=== PATIENT | female | born 1990 | race Hispanic/Latino ===

== ENCOUNTER 2025-01-02 14:44 | Emergency (ER) | payer MEDICARE ==
[~2025-01-02] VITALS: Ht 154.9 cm; Wt 101.2 kg
[~2025-01-02 14:44] MED LIST: ALBUTEROL2.5 MG/3 M INH; IBUPROFEN600 MG PO; VENTOLIN HFA18 GM INH; ZITHROMAX250 MG PO
[2025-01-02 15:00] VITALS: PULSE 110; RESP 20; TEMP 98.2; O2SAT 97
[2025-01-02] MEDS: SODIUM CHLORIDE 0.9% 1000ML 1,000 ML IV ONE (15:47)
== END 2025-01-02 18:34 | disposition home or self-care (01) ==
LOC: FSED 15:07
DX: N93.8 Other specified abnormal uterine and vaginal bleeding (principal); J45.909 Unspecified asthma, uncomplicated
CPT/HCPCS: 36415; 76801; 76830; 80053; 80307; 81003; 84702; 85025; 99283; J7030